=== PATIENT | female | born 1995 | race Caucasian/White ===

== ENCOUNTER 2022-04-30 15:35 | Emergency (ER) | payer OTHER ==
[~2022-04-30 15:35] MED LIST: PRENATAL TABLE1 EAC1 PO; TYLENOL 500 MG500 MG PO; ZITHROMAX250 MG PO
[2022-04-30] MEDS ORDERED: AMOX TR-K CLV1 EAC4 PO (17:05)
== END 2022-04-30 17:50 | disposition home or self-care (01) ==
LOC: ER1 15:35
DX: K04.7 Periapical abscess without sinus (principal); F17.210 Nicotine dependence, cigarettes, uncomplicated
CPT/HCPCS: 96372; 99282; J1885